=== PATIENT | female | born 1975 | race American Indian/Alaskan Native ===

== ENCOUNTER 2017-04-17 08:46 | Emergency (ER) | payer OTHER ==
[~2017-04-17] VITALS: Ht 154.9 cm; Wt 70.3 kg
[~2017-04-17 08:46] MED LIST: IBUPROFEN200 MG PO; PROZAC20 MG PO; TRAMADOL HCL50 MG PO
[2017-04-17] MEDS ORDERED: TRAZODONE HCL50 MG PO (09:16)
[2017-04-17] MEDS ORDERED: ZOLOFT100 MG PO (09:17)
== END 2017-04-17 11:42 | disposition home or self-care (01) ==
LOC: ED 08:46
DX: S50.01XA Contusion of right elbow, initial encounter (principal); S50.11XA Contusion of right forearm, initial encounter; M19.021 Primary osteoarthritis, right elbow; F32.9 Major depressive disorder, single episode, unspecified; F41.9 Anxiety disorder, unspecified; F43.10 Post-traumatic stress disorder, unspecified; W01.10XA Fall on same level from slipping, tripping and stumbling with subsequent striking against unspecified object, initial encounter; Z90.49 Acquired absence of other specified parts of digestive tract; Z88.5 Allergy status to narcotic agent; Z88.1 Allergy status to other antibiotic agents; Z79.899 Other long term (current) drug therapy
CPT/HCPCS: 73080; 73090; 96372; 99283; J1885

== ENCOUNTER 2020-01-03 11:35 | Emergency (ER) | payer OTHER ==
[~2020-01-03] VITALS: Ht 154.9 cm; Wt 70.3 kg
[~2020-01-03 11:35] MED LIST changes: +TRAZODONE HCL50 MG PO; +ZOLOFT100 MG PO
== END 2020-01-03 13:05 | disposition home or self-care (01) ==
LOC: ED 11:35
DX: S93.402A Sprain of unspecified ligament of left ankle, initial encounter (principal); F32.9 Major depressive disorder, single episode, unspecified; F41.9 Anxiety disorder, unspecified; F43.10 Post-traumatic stress disorder, unspecified; Z88.5 Allergy status to narcotic agent; Z88.1 Allergy status to other antibiotic agents; Z79.899 Other long term (current) drug therapy; W01.0XXA Fall on same level from slipping, tripping and stumbling without subsequent striking against object, initial encounter
CPT/HCPCS: 73610; 73630; 99283-25

== ENCOUNTER 2022-08-11 09:12 | Emergency (ER) | payer MEDICARE, OTHER ==
[~2022-08-11] VITALS: Ht 154.9 cm; Wt 85.0 kg
[2022-08-11] MEDS ORDERED: ONDANSETRON ODT8 MG PO (09:41)
== END 2022-08-11 09:50 | disposition home or self-care (01) ==
LOC: ED 09:12
DX: B34.9 Viral infection, unspecified (principal); Z20.822 Contact with and (suspected) exposure to COVID-19; Z87.891 Personal history of nicotine dependence; Z88.5 Allergy status to narcotic agent; Z88.1 Allergy status to other antibiotic agents; Z79.899 Other long term (current) drug therapy
CPT/HCPCS: A9270

== ENCOUNTER 2025-05-30 13:27 | Emergency (ER) | payer MEDICARE, OTHER ==
[~2025-05-30] VITALS: Ht 157.5 cm; Wt 93.6 kg
[~2025-05-30 13:27] MED LIST changes: +ONDANSETRON ODT8 MG PO
[2025-05-30 14:29] LABS: CORONAVIRUS COVID-19 AG NEGATIVE (NEGATIVE)
[2025-05-30] MEDS ORDERED: CEPHALEXIN500 M1 PO (15:33)
[2025-05-30 15:47] VITALS: BP 135/91
== END 2025-05-30 15:47 | disposition home or self-care (01) ==
LOC: ED 13:27
PROVIDERS: Emergency Medicine
DX: J34.0 Abscess, furuncle and carbuncle of nose (principal); F43.10 Post-traumatic stress disorder, unspecified; Z88.5 Allergy status to narcotic agent; Z88.1 Allergy status to other antibiotic agents; Z87.891 Personal history of nicotine dependence
CPT/HCPCS: 36415; 99284